=== PATIENT | female | born 1990 | race African-American/Black ===

== ENCOUNTER 2016-12-24 22:33 | Emergency (ER) | payer OTHER ==
[~2016-12-24] VITALS: Ht 162.6 cm; Wt 90.7 kg
--- NOTE | ~2016-12-24 | EKG ---
[address] [place] [address] ELECTROCARDIOGRAM REPORT Name: NARDAGARY Room #: DEP MARCUS Rasmussen#: [id number] Admission: 12/24/16 Attend Phys: Discharge: 12/24/16 Date of : [birth year] Report #: [id number] THIS REPORT FOR: //name// [facility] ED Test Date: 2016-12-24 Test Time: 22:30:28 Pat Name: GARY LABOY Department: Room: Gender: F Epic Specialist: BLADIMIR : 1990 Requested By: Susanne Etienne Order Number: [id number] MD: Alex Guardado Measurements Intervals Sandy Rate: 74 P: 21 IL: 163 QRS: 51 QRSD: 90 T: 26 QT: 399 QTc: 443 Interpretive Statements Sinus rhythm Baseline wander in lead(s) I,II,aVR,aVL No previous ECG available for comparison Electronically Signed On 12-25-2016 9:07:33 CDT by Alex Guardado [email or web address] <ELECTRONICALLY SIGNED> By: Alex Guardado MD, [facility] 12/25/16906 29 Alex Guardado MD, FACC /EPI
[2016-12-24 23:40] VITALS: BP 119/71
== END 2016-12-24 23:41 | disposition home or self-care (01) ==
LOC: ER 22:33
DX: R07.89 Other chest pain (principal); F17.210 Nicotine dependence, cigarettes, uncomplicated; Z88.0 Allergy status to penicillin; Z88.6 Allergy status to analgesic agent